=== PATIENT | female | born 1975 | race African-American/Black ===

== ENCOUNTER 2017-09-05 07:45 | Outpatient (CLI) | payer BC, OTHER ==
[2017-09-05] MEDS ORDERED: NORMAL SALINE 250 ML IV PRN (07:55)
[2017-09-05] MEDS ORDERED: ACETAMINOPHEN 325 MG TABLET PO PRN (07:55)
[2017-09-05] MEDS ORDERED: DIPHENHYDRAMINE HCL 25 MG CAPSULE PO PRN (07:56)
[2017-09-05] MEDS ORDERED: IRON DEXTRAN COMPLEX 25 MG in SYRINGE, DISPOSABLE, 1 EACH IV PRN (07:57)
[2017-09-05] MEDS ORDERED: IRON DEXTRAN COMPLEX 975 MG in NORMAL SALINE 1000 ML 1,000 ML IV PRN (07:58)
[2017-09-05 08:27] VITALS: BP 132/70
== END 2017-09-05 13:30 | disposition home or self-care (01) ==
LOC: II 07:45 → 5TH 07:48 → II 13:30
PROVIDERS: ATTEND Internal Medicine
PROC: 3E033GC Introduction of Other Therapeutic Substance into Peripheral Vein, Percutaneous Approach (ICD-10-PCS; principal; 2017-09-05)
DX: D50.8 Other iron deficiency anemias (principal)
CPT/HCPCS: 96365; 96366; 96375; J1750; J7030; J3490; 96360; 96374

== ENCOUNTER 2017-11-14 09:02 | Outpatient (CLI) | payer BC, OTHER ==
[2017-11-14] MEDS ORDERED: NORMAL SALINE 250 ML IV PRN (09:32)
[2017-11-14] MEDS ORDERED: ACETAMINOPHEN 325 MG TABLET PO PRN (09:37)
[2017-11-14] MEDS ORDERED: DIPHENHYDRAMINE HCL 25 MG CAPSULE PO PRN (09:41)
[2017-11-14] MEDS ORDERED: FERRIC CARBOXYMALTOSE 750 MG in NORMAL SALINE 250 ML IV PRN (09:42)
[2017-11-14 11:30] VITALS: BP 148/74
== END 2017-11-14 13:38 | disposition home or self-care (01) ==
LOC: II 09:02 → 5TH 09:07 → II 13:38
PROVIDERS: ATTEND Internal Medicine
PROC: 3E033GC Introduction of Other Therapeutic Substance into Peripheral Vein, Percutaneous Approach (ICD-10-PCS; principal; 2017-11-14)
DX: D50.8 Other iron deficiency anemias (principal); K90.9 Intestinal malabsorption, unspecified
CPT/HCPCS: 96365; J7050; J1439; 96374

== ENCOUNTER 2018-06-04 11:57 | Emergency (ER) | payer OTHER ==
[2018-06-04] MEDS ORDERED: DICYCLOMINE HCL INJ 20 MG/2 ML AMPULE IM ONE (12:29)
--- NOTE | 2018-06-04 12:30 | ER Document Report ---
ED Medical Screen (RME) - General Chief Complaint: Abdominal Pain Stated Complaint: ABDOMINAL PAIN Time Seen by Provider: 06/04/18 12:24 Notes: 43 years old female with history of Crohn's disease presents today with diffuse abdominal pain since yesterday. Associated with nausea no vomiting. No fever chills or other constitutional symptoms. She is on Bactrim and Flagyl currently. TRAVEL OUTSIDE OF THE [place] IN LAST 30 DAYS: No - Related Data Allergies/Adverse Reactions: amoxicillin [Amoxicillin] Allergy (Verified 06/04/18 12:03) rash Past Medical History - Social History Frequency of alcohol use: None Drug Abuse: None Endocrine Medical History: Reports: Hx Diabetes Mellitus Type 2 Renal/ Medical History: Denies: Hx Peritoneal Dialysis Past Surgical History: Reports: Hx Section, Hx Thyroid Surgery - Immunizations Hx Diphtheria, Pertussis, Tetanus Vaccination: Yes Physical Exam - Vital signs Vitals: Temp Pulse Resp BP Pulse Ox 99.2 F 97 24 H 118/62 98 06/04/18 12:10 06/04/18 12:10 06/04/18 12:10 06/04/18 12:10 06/04/18 12:10 Course - Vital Signs Vital signs: Temp Pulse Resp BP Pulse Ox 99.2 F 97 24 H 118/62 98 06/04/18 12:10 06/04/18 12:10 06/04/18 12:10 06/04/18 12:10 06/04/18 12:10 Doctor's Discharge - Discharge Referrals: RUBIN JONES MD [Primary Care Provider] - Follow up as needed
[2018-06-04 13:24] LABS: ABSOLUTE BASOPHILS # (AUTO) 0.1 10^3/uL (0.0-0.2); ABSOLUTE MONOCYTES (AUTO) 0.5 10^3/uL (0.1-1.4); ABSOLUTE NEUT (AUTO) 2.8 10^3/uL (1.7-8.2); BASOPHILS % (AUTO) 1.1 % (0-2); EOSINOPHILS % (AUTO) 0.3 % (0-6); HEMATOCRIT 38.8 % (36.0-47.0); HEMOGLOBIN 12.8 g/dL (12.0-15.5); LYMPHOCYTES % (AUTO) 37.7 % (13-45); MEAN CORPUSCULAR HEMOGLOBIN 27.1 pg (27.0-33.4); MEAN CORPUSCULAR HGB CONC 32.9 g/dL (32.0-36.0); MEAN CORPUSCULAR VOLUME 82 fl (80-97); MONOCYTES % (AUTO) 9.4 % (3-13); PLATELET COUNT 325 10^3/uL (150-450); RED BLOOD COUNT 4.71 10^6/uL (3.72-5.28); RED CELL DISTRIBUTION WIDTH 13.6 % (11.5-14.0); SEGMENTED NEUTROPHILS % (AUTO) 51.5 % (42-78); TOTAL CELLS COUNTED % (AUTO) 100 %; WHITE BLOOD COUNT 5.3 10^3/uL (4.0-10.5)
[2018-06-04 13:44] LABS: APPEARANCE,URINE CLEAR; BILIRUBIN,URINE NEGATIVE (NEGATIVE); COLOR,URINE YELLOW; GLUCOSE, URINE NEGATIVE (NEGATIVE); KETONES,URINE NEGATIVE (NEGATIVE); LEUKOCYTE ESTERASE,URINE TRACE (NEGATIVE); NITRITE,URINE NEGATIVE (NEGATIVE); PROTEIN,URINE NEGATIVE (NEGATIVE); URINE SPECIFIC GRAVITY 1.028
[2018-06-04 13:48] LABS: ALANINE AMINOTRANSFERASE 15 U/L (9-52); ALBUMIN 3.7 g/dL (3.5-5.0); ALKALINE PHOSPHATASE 70 U/L (38-126); ANION GAP 11 (5-19); ASPARTATE AMINO TRANSFERASE 17 U/L (14-36); BILIRUBIN,DIRECT 0.3 mg/dL (0.0-0.4); BILIRUBIN,TOTAL 0.3 mg/dL (0.2-1.3); BLOOD UREA NITROGEN 15 mg/dL (7-20); CARBON DIOXIDE 23 mmol/L (22-30); CHLORIDE 108 mmol/L (98-107); GLUCOSE 71 mg/dL (75-110); LIPASE 56.5 U/L (23-300); POTASSIUM 4.3 mmol/L (3.6-5.0); SODIUM 142.3 mmol/L (137-145); TOTAL PROTEIN 7.9 g/dL (6.3-8.2)
--- NOTE | 2018-06-04 14:19 | RADIOLOGY REPORT (SQ) ---
EXAM DESCRIPTION: ACUTE ABDOMEN SERIES COMPLETED DATE/TIME: 06/04/2018 2:05 pm REASON FOR STUDY: Abdominal pain COMPARISON: None. NUMBER OF VIEWS: Three views. TECHNIQUE: Frontal chest, supine abdomen and upright/decubitus abdomen radiographic images acquired. LIMITATIONS: None. FINDINGS: CHEST: Lungs clear of infiltrates. FREE AIR: None. No abnormal gas collections. BOWEL GAS PATTERN: Nonobstructive pattern. No dilated loops or air fluid levels. CALCIFICATIONS: No suspicious calcifications. HARDWARE: None in the abdomen. SOFT TISSUES: No gross mass or suggestion of organomegaly. BONES: No acute fracture. No worrisome bone lesions. OTHER: No other significant finding. IMPRESSION: NO RADIOGRAPHIC EVIDENCE FOR ACUTE ABDOMINAL DISEASE. TECHNICAL DOCUMENTATION: JOB ID: [id number] [employer]- All Rights Reserved Reading location - IP/workstation name: [email or web address]
--- NOTE | 2018-06-04 14:25 | ER Document Report ---
ED General - General Chief Complaint: Abdominal Pain Stated Complaint: ABDOMINAL PAIN Time Seen by Provider: 06/04/18 12:24 Notes: Patient is a 43-year-old female with Crohn's disease presents to the emergency department for chief complaint of abdominal pain and nausea. Patient states that her pain started yesterday and seem to get worse today she describes as a cramping in nature, 4 out of 10. It is improved from what it was earlier today. She admits to having nausea but no vomiting. She states that she has chronic constipation, which she takes MiraLAX for, her last bowel movement was this morning however. She denies having any blood in her stool, mucousy diarrhea or bloody diarrhea. She also denies having any chest pain, shortness of breath, fevers, chills, night sweats. TRAVEL OUTSIDE OF THE [place] IN LAST 30 DAYS: No - Related Data Allergies/Adverse Reactions: amoxicillin [Amoxicillin] Allergy (Verified 06/04/18 12:03) rash Past Medical History - Social History Smoking Status: Never Smoker Frequency of alcohol use: None Drug Abuse: None Family History: Reviewed & Not Pertinent Patient has suicidal ideation: No Patient has homicidal ideation: No Endocrine Medical History: Reports: Hx Diabetes Mellitus Type 2 Renal/ Medical History: Denies: Hx Peritoneal Dialysis GI Medical History: Reports: Hx Crohn's Disease Past Surgical History: Reports: Hx Section, Hx Thyroid Surgery - Immunizations Hx Diphtheria, Pertussis, Tetanus Vaccination: Yes Review of Systems - Review of Systems Notes: REVIEW OF SYSTEMS: CONSTITUTIONAL : Denies fever, chills, or sweats. Denies recent illness. EENT: Denies eye, ear, throat, or mouth pain or symptoms. Denies nasal or sinus congestion. CARDIOVASCULAR: Denies chest pain. RESPIRATORY: Denies cough, cold, or chest congestion. Denies shortness of breath, difficulty breathing, or wheezing. GASTROINTESTINAL: Admits to abdominal pain and nausea Denies vomiting, or diarrhea. GENITOURINARY: Denies difficulty urinating, painful urination, burning, frequency, or blood in urine. FEMALE GENITOURINARY: Denies vaginal bleeding, abnormal or irregular periods. LMP: MUSCULOSKELETAL: Denies neck or back pain or joint pain or swelling. SKIN: Denies rash or skin lesions. HEMATOLOGIC : Denies easy bruising or bleeding. LYMPHATIC: Denies swollen, enlarged glands. NEUROLOGICAL: Denies altered mental status or loss of consciousness. Denies headache. Denies weakness or paralysis or loss of use of either side. Denies problems with gait or speech. Denies sensory or motor loss. PSYCHIATRIC: Denies anxiety or stress or depression. ALL OTHER SYSTEMS REVIEWED AND NEGATIVE. Physical Exam - Vital signs Vitals: Temp Pulse Resp BP Pulse Ox 99.2 F 97 24 H 118/62 98 06/04/18 12:10 06/04/18 12:10 06/04/18 12:10 06/04/18 12:10 06/04/18 12:10 - Notes Notes: PHYSICAL EXAMINATION: GENERAL: Well-appearing, well-nourished and in no acute distress. HEAD: Atraumatic, normocephalic. EYES: Pupils equal round and reactive to light, extraocular movements intact, sclera anicteric, conjunctiva are normal. ENT: nares patent, oropharynx clear without exudates. Moist mucous membranes. NECK: Normal range of motion, supple without lymphadenopathy LUNGS: Breath sounds clear to auscultation bilaterally and equal. No wheezes rales or rhonchi. HEART: Regular rate and rhythm without murmurs ABDOMEN: Soft, obese, mild left upper quadrant tenderness, no lower abdominal tenderness, no rebound, guarding or rigidity. Bowel sounds present EXTREMITIES: Normal range of motion, no pitting or edema. No cyanosis. NEUROLOGICAL: No focal neurological deficits. Moves all extremities spontaneously and on command. PSYCH: Normal mood, normal affect. SKIN: Warm, Dry, normal turgor, no rashes or lesions noted. Course - Re-evaluation Re-evalutation: 06/04/18 Patient seen and examined, vital signs reviewed. Patient appeared well, improved after receiving IM Bentyl, blood work demonstrate a mild elevation in CRP, patient does have Crohn's disease, but did not have bloody bowel movements , either mild flare, or secondary to the patient's current infection she is being treated for with Flagyl and Bactrim. No leukocytosis. Abdominal series was unremarkable, no bowel obstruction. Given the patient was improved clinically, and pain was resolving, will have the patient follow-up with her shipping & receiving lead tomorrow which she has an appointment already, will prescribe her p.o. Bentyl, to take as needed, advised to return if her symptoms worsen in any way, patient agreed to this plan of care and was discharged. - Vital Signs Vital signs: Temp Pulse Resp BP Pulse Ox 99.2 F 97 24 H 118/62 98 06/04/18 12:10 06/04/18 12:10 06/04/18 12:10 06/04/18 12:10 06/04/18 12:10 - Laboratory Result Diagrams: 06/04/18 13:00 06/04/18 13:00 Laboratory results interpreted by me: 06/04/18 06/04/18 06/04/18 13:00 13:00 13:00 Chloride 108 H Glucose 71 L C-Reactive Protein 37.6 H Urine Urobilinogen 4.0 H Ur Leukocyte Esterase TRACE H Discharge - Discharge Condition: Good Disposition: HOME, SELF-CARE Instructions: Abdominal Pain ([facility]), Antispasmodics ([facility]) Additional Instructions: Please keep your appointment with your shipping & receiving lead tomorrow, take medications as prescribed, continue taking your antibiotics as prescribed. Avoid caffeine, high acid foods such as citric foods, and tomatoes, avoid coffee. If you have any worsening of her symptoms, do not hesitate to return to the emergency department for further evaluation and treatment. Prescriptions: Dicyclomine HCl [Bentyl 20 mg Tablet] 20 mg PO QID PRN #20 tablet PRN Reason: Abdominal Cramping Referrals: RUBIN JONES MD [Primary Care Provider] - Follow up as needed
[2018-06-04 14:43] VITALS: BP 114/68
== END 2018-06-04 14:43 | disposition home or self-care (01) ==
LOC: ER 11:57
DX: K50.90 Crohn's disease, unspecified, without complications (principal); K59.00 Constipation, unspecified; Z79.899 Other long term (current) drug therapy; B99.9 Unspecified infectious disease; R10.12 Left upper quadrant pain; R11.0 Nausea; Z88.0 Allergy status to penicillin; E11.9 Type 2 diabetes mellitus without complications
CPT/HCPCS: 99284; 96372; 36415; 83690; 85025; 86140; 80053; 81001; 74022; J0500

== ENCOUNTER 2019-01-06 07:32 | Emergency (ER) | payer OTHER ==
--- NOTE | 2019-01-06 09:11 | ER Document Report ---
ED ENT - General Chief Complaint: Sore Throat Stated Complaint: SORE THROAT Time Seen by Provider: 01/06/19 08:41 Primary Care Provider: RUBIN JONES MD [Primary Care Provider] - Follow up as needed TRAVEL OUTSIDE OF THE [place] IN LAST 30 DAYS: No - HPI Notes: Patient is a 43-year-old female that presents to the emergency department for chief complaint of sore throat. Patient reports sore throat that began yesterday. She was seen at an urgent care yesterday and diagnosed with sinus infection. Patient states she was started on doxycycline and took a dose yesterday evening and this morning. She states when she woke up this morning she started to feel some swelling and increased pain in the back of her throat. It is bilateral. She denies any difficulty swallowing food or liquids. She denies associated fevers or chills. She denies any known allergy to doxycycline. She has not taken any [id number] medication for her symptoms at home. Past Medical History: Diabetes, hypothyroidism Past Surgical History: , thyroidectomy Social History: Denies drugs alcohol and tobacco Family History: Reviewed and noncontributory for presenting illness Allergies: Reviewed, see documented allergy list. REVIEW OF SYSTEMS: CONSTITUTIONAL : No fever No chills No diaphoresis No recent illness EENT: No vision changes No congestion sore throat CARDIOVASCULAR: No chest pain No palpitations RESPIRATORY: No shortness of breath No cough No difficulty breathing GASTROINTESTINAL: No abdominal pain No nausea No vomiting No diarrhea GENITOURINARY: No dysuria No hematuria No difficulty urinating MUSCULOSKELETAL: No back pain No leg pain No arm pain SKIN: No rashes No lesions LYMPHATIC: No swollen, enlarged glands. NEUROLOGICAL: No lightheadedness No headache No weakness No paresthesias PSYCHIATRIC: No anxiety No depression PHYSICAL EXAMINATION: Vital signs reviewed, nursing noted reviewed. GENERAL: Well-appearing, well-nourished and in no acute distress. HEAD: Atraumatic, normocephalic. EYES: Eyes appear normal, extraocular movements intact, sclera anicteric, conjunctiva are normal. ENT: Bilateral nasal mucosal, rhinorrhea, posterior nasal drip,, Bilateral tonsillar edema and mild erythema with no exudates, no uvular edema, moist mucous membranes. NECK: Normal range of motion, supple with anterior chain lymphadenopathy LUNGS: Breath sounds clear to auscultation bilaterally and equal. No wheezes rales or rhonchi. HEART: Regular rate and rhythm without murmurs ABDOMEN: Soft, nontender, normoactive bowel sounds. No rebound, guarding, or rigidity. No masses appreciated. EXTREMITIES: Nontender, good range of motion, no pitting or edema. NEUROLOGICAL: No focal neurological deficits. Moves all extremities spontaneously Motor and sensory grossly intact on exam. PSYCH: Normal mood, normal affect. SKIN: Warm, Dry, normal turgor, no rashes or lesions noted on exposed skin - Related Data Allergies/Adverse Reactions: amoxicillin [Amoxicillin] Allergy (Verified 01/06/19 07:34) rash Past Medical History - Social History Smoking Status: Never Smoker Frequency of alcohol use: Occasional Drug Abuse: None Family History: Reviewed & Not Pertinent Patient has suicidal ideation: No Patient has homicidal ideation: No Endocrine Medical History: Reports: Hx Diabetes Mellitus Type 2 Renal/ Medical History: Denies: Hx Peritoneal Dialysis GI Medical History: Reports: Hx Crohn's Disease Past Surgical History: Reports: Hx Section, Hx Thyroid Surgery - Immunizations Hx Diphtheria, Pertussis, Tetanus Vaccination: Yes Physical Exam - Vital signs Vitals: Temp Pulse Resp BP Pulse Ox 99.3 F 97 16 137/67 H 97 01/06/19 07:41 01/06/19 07:41 01/06/19 07:41 01/06/19 07:41 01/06/19 07:41 Course - Re-evaluation Re-evalutation: 01/06/19 09:09 Vitals reviewed. Nursing notes reviewed. Patient is negative for rapid strep. She does have a lot of sinus congestion and posterior nasal drip. Patient tonsils are edematous. She is concerned she may have a possible allergy to doxycycline because of the increased swelling. I will switch her antibiotic to azithromycin which she has tolerated in the past. She is a diabetic and states her blood sugars usually run in the high 200s and therefore steroids will be held. Patient told to return to the emergency room if she develops any increased swelling or difficulty swallowing or breathing. She will otherwise follow with her PCP for reevaluation in the next few days. She is stable at discharge. Laboratory 01/06/19 08:01 Group A Strep Rapid NEGATIVE - Vital Signs Vital signs: Temp Pulse Resp BP Pulse Ox 99.3 F 97 16 137/67 H 97 01/06/19 07:41 01/06/19 07:41 01/06/19 07:41 01/06/19 07:41 01/06/19 07:41 Discharge - Discharge Clinical Impression: Viral pharyngitis Sinusitis Qualifiers: Sinusitis location: unspecified location Chronicity: acute Recurrence: non- recurrent Qualified Code(s): J01.90 - Acute sinusitis, unspecified Condition: Stable Disposition: HOME, SELF-CARE Instructions: Sore Throat ([facility]) Additional Instructions: Please return to the emergency department if you have any worsening, or concern of your symptoms. Please return to the emergency department if you develop chest pain, difficulty breathing, severe abdominal pain, or ongoing vomiting. Please follow-up with your primary care physician in 2-3 days and any other recommended physicians. If prescribed, take all medications as directed. If you have any questions or concerns do not hesitate to return the emergency department for evaluation. Prescriptions: Azithromycin [Zithromax 250 mg Tablet] 250 mg PO ASDIR PRN #6 tablet PRN Reason: Referrals: RUBIN JONES MD [Primary Care Provider] - Follow up in 3-5 days
[2019-01-06 09:22] VITALS: BP 116/56
== END 2019-01-06 09:21 | disposition home or self-care (01) ==
LOC: ER 07:32
DX: J02.8 Acute pharyngitis due to other specified organisms (principal); B97.89 Other viral agents as the cause of diseases classified elsewhere; J01.90 Acute sinusitis, unspecified; R09.82 Postnasal drip; R09.81 Nasal congestion; E11.9 Type 2 diabetes mellitus without complications; Z88.0 Allergy status to penicillin
CPT/HCPCS: 87070; 87077; 87880; 99283

== ENCOUNTER 2019-10-09 08:37 | Emergency (ER) | payer OTHER ==
[2019-10-09] MEDS ORDERED: LIDOCAINE 5% (700 MG) TRANSDERMAL ADH..PATCH TP ONE (09:41)
[2019-10-09] MEDS ORDERED: KETOROLAC TROMETHAMINE 60 MG/2 ML SDV IM ONE (09:41)
--- NOTE | 2019-10-09 09:46 | ER Document Report ---
HPI - HPI Time Seen by Provider: 10/09/19 09:35 Pain Level: 5 Notes: Patient is a 44-year-old female with a history of insulin-dependent diabetes who presents complaining of right shoulder pain and right trapezius muscle pain that began last night without precipitating event or injury. Patient states that she has tightness to the area and movement makes the pain worse. Pain does not radiate. Pain feels like a spasming. Denies any headache, fever, head injury, neck pain, changes in vision/speech/mentation/hearing, URI, sore throat, chest pain, palpitations, syncope, cough, shortness of breath, wheeze, dyspnea, abdominal pain, nausea/vomiting/diarrhea, urinary retention, dysuria, hematuria, loss of control of bowel or bladder, numbness/tingling, saddle anesthesia, muscle paralysis/weakness, or rash. - ROS Systems Reviewed and Negative: Yes All other systems reviewed and negative - REPRODUCTIVE Reproductive: DENIES: : Past Medical History - Social History Smoking Status: Unknown if Ever Smoked Chew tobacco use (# tins/day): No Frequency of alcohol use: None Drug Abuse: None Family History: Reviewed & Not Pertinent Patient has suicidal ideation: No Patient has homicidal ideation: No Endocrine Medical History: Reports: Hx Diabetes Mellitus Type 2 Renal/ Medical History: Denies: Hx Peritoneal Dialysis GI Medical History: Reports: Hx Crohn's Disease Past Surgical History: Reports: Hx Section, Hx Thyroid Surgery - Immunizations Hx Diphtheria, Pertussis, Tetanus Vaccination: Yes Vertical Provider Document - CONSTITUTIONAL Agree With Documented VS: Yes Notes: PHYSICAL EXAMINATION: GENERAL: Well-appearing, well-nourished and in no acute distress. NECK: Normal range of motion, supple without lymphadenopathy. Non-tender. Spurling negative. No rigidity/meningismus. LUNGS: Breath sounds clear to auscultation bilaterally and equal. No wheezes rales or rhonchi. HEART: Regular rate and rhythm without murmurs, rubs, gallops. Musculoskeletal: Rt shoulder: FROM to passive. LROM to active due to pain. Strength 5+/5. No crepitus. No erythema or warmth. No deformity or ecchymosis. RC intact 5+/5 strength. N/V intact distal. + reproducible tenderness to the rt trapezius muscle with spasm and trigger point noted. + reproducible mild tenderness to palp rt deltoid muscle. No bony tenderness. Extremities: No cyanosis, clubbing, or edema b/l. Peripheral pulses 2+. Capillary refill less than 3 seconds. NEUROLOGICAL: Normal speech, normal gait. Normal sensory, motor exams PSYCH: Normal mood, normal affect. SKIN: Warm, Dry, normal turgor, no rashes or lesions noted. - INFECTION CONTROL TRAVEL OUTSIDE OF THE [place] IN LAST 30 DAYS: No Course - Re-evaluation Re-evalutation: 10/09/19 09:43 Patient is an afebrile, well-hydrated, 44-year-old female who presents to the ED with Rt shoulder/trapezius muscle pain, suspect benign. Vitals are acceptable without any significant tachycardia, tachypnea, or hypoxia. PE is otherwise unremarkable for any neurovascular compromise, obvious tendon/ligament rupture, obvious fracture/dislocation, septic joint. No XR warranted at this time. Sling provided today. Toradol/lidoderm patch provided today. Patient is nontoxic-appearing. No other labs or imaging warranted at this time based on H&P. Conservative measures otherwise for symptoms. Recheck with your PCM in 3- 5 days. Consider consult orthopedics. Return to the ED with any worsening/concerning symptoms otherwise as reviewed in discharge. Patient is in agreement. - Vital Signs Vital signs: Temp Pulse Resp BP Pulse Ox 98.7 F 96 18 181/95 H 96 10/09/19 08:42 10/09/19 08:42 10/09/19 08:42 10/09/19 08:42 10/09/19 08:42 Discharge - Discharge Clinical Impression: Trapezius muscle spasm Right shoulder pain Qualifiers: Chronicity: acute Qualified Code(s): M25.511 - Pain in right shoulder Condition: Stable Disposition: HOME, SELF-CARE Additional Instructions: Rest, Ice, Compression, Elevation Tylenol/ibuprofen as needed Light stretches daily Strength exercises as able Moist heat and massage may help F/u with your PCP in 3-5 days for a recheck Consider consult(s) with Orthopedics/physical therapy for ongoing/worsening symptoms Return to the ED with any worsening symptoms and/or development of fever, headache, chest pain, palpitations, syncope, shortness of breath, trouble breathing, abdominal pain, n/v/d, muscle weakness/paralysis, numbness/tingling, swelling, redness, or other worsening symptoms that are concerning to you. Prescriptions: Lidocaine [Lidoderm 5% (700 mg) Transdermal Patch] 1 patch TP DAILY #10 adh..patch Ibuprofen [Motrin 800 mg Tablet] 800 mg PO Q8H PRN #15 tab PRN Reason: Methocarbamol [Robaxin 750 mg Tablet] 750 mg PO TID PRN #10 tablet PRN Reason: Forms: Elevated Blood Pressure, Return to Work Referrals: RUBIN JONES MD [Primary Care Provider] - Follow up as needed [facility] [Provider Group] - Follow up as needed
[2019-10-09 10:14] VITALS: BP 160/92
== END 2019-10-09 10:13 | disposition home or self-care (01) ==
LOC: ER 08:37
DX: M62.830 Muscle spasm of back (principal); M25.511 Pain in right shoulder; E11.9 Type 2 diabetes mellitus without complications; Z79.4 Long term (current) use of insulin
CPT/HCPCS: 99283; 96372; J1885

== ENCOUNTER 2020-06-04 13:22 | Emergency (ER) | payer SELFPAY ==
[2020-06-04 13:38] VITALS: BP 154/89
--- NOTE | 2020-06-04 14:05 | ER Document Report ---
HPI - HPI Patient complains to provider of: Skin rash Time Seen by Provider: 06/04/20 13:56 Onset: Yesterday Onset/Duration: Gradual Quality of pain: Burning Pain Level: 1 Context: Patient states that she used any hair removal cream to her perineum yesterday. Patient states she rinsed the area off. Patient states that later in the evening the skin fold of her lower abdomen became red, tender and moist. Patient was concerned that maybe she was having a reaction to the hair removal cream although she has used his hair removal cream in the past without any adverse reaction. Patient denies getting the cream into the skin folds at all. Associated Symptoms: Other - Skin rash Exacerbated by: Denies Relieved by: Denies Similar symptoms previously: No Recently seen / treated by doctor: No - ROS ROS below otherwise negative: Yes Systems Reviewed and Negative: Yes All other systems reviewed and negative - CONSTITUTIONAL Constitutional: DENIES: Fever, Chills - REPRODUCTIVE Reproductive: DENIES: : - DERM Skin Color: Erythema Skin Problems: Rash Past Medical History - General Information source: Patient - Social History Smoking Status: Never Smoker Frequency of alcohol use: None Drug Abuse: None Lives with: Family Family History: Reviewed & Not Pertinent Patient has homicidal ideation: No Endocrine Medical History: Reports: Hx Diabetes Mellitus Type 2, Hx Hypothy roidism Renal/ Medical History: Denies: Hx Peritoneal Dialysis GI Medical History: Reports: Hx Crohn's Disease Past Surgical History: Reports: Hx Section, Hx Thyroid Surgery, Hx Tubal Ligation - Immunizations Hx Diphtheria, Pertussis, Tetanus Vaccination: Yes Vertical Provider Document - CONSTITUTIONAL Agree With Documented VS: Yes Exam Limitations: No Limitations General Appearance: WD/WN, No Apparent Distress - INFECTION CONTROL TRAVEL OUTSIDE OF THE [place] IN LAST 30 DAYS: No - HEENT HEENT: Atraumatic, Normocephalic - NECK Neck: Normal Inspection - RESPIRATORY Respiratory: No Respiratory Distress - GI/ABDOMEN Gastrointestinal: Abdomen Soft Notes: Morbidly obese, patient with erythematous rash with open wounds to skin fold of lower abdomen - MUSCULOSKELETAL/EXTREMETIES Musculoskeletal/Extremeties: MAEW - NEURO Level of Consciousness: Awake, Alert, Appropriate Motor/Sensory: No Motor Deficit - DERM Integumentary: Warm, Rash - Erythematous papular rash with open areas to skin folds lower abdomen Course - Re-evaluation Re-evalutation: 06/04/20 Patient with skin rash to skin fold of lower abdomen worrisome for fungal rash. Discussed concerns with patient about keeping area clean and dry. Will treat with antifungal medication at this time. Patient without any skin rash or lesions to the area where she used the hair removal cream. Patient does have a history of diabetes, patient reports good glycemic control. - Vital Signs Vital signs: Temp Pulse Resp BP Pulse Ox 98.4 F 93 18 154/89 H 97 06/04/20 13:36 06/04/20 13:36 06/04/20 13:36 06/04/20 13:36 06/04/20 13:36 Discharge - Discharge Clinical Impression: Intertrigo Condition: Stable Disposition: HOME, SELF-CARE Instructions: Skin Fungus ([facility]) Additional Instructions: Return immediately for any new or worsening symptoms Followup with your primary care provider, call tomorrow to make a followup appointment Keep area clean and dry Prescriptions: Ketoconazole 1 applic TP DAILY #60 cream..g. Referrals: MORRIS COELLO MD [ACTIVE STAFF] - Follow up as needed
== END 2020-06-04 14:32 | disposition home or self-care (01) ==
LOC: ER 13:22
DX: L30.4 Erythema intertrigo (principal); R21 Rash and other nonspecific skin eruption; Z98.51 Tubal ligation status; E66.01 Morbid (severe) obesity due to excess calories
CPT/HCPCS: 99282